=== PATIENT | female | born 1945 ===

== ENCOUNTER 2018-11-18 06:00 | Day surgery (SDC) | payer OTHER ==
[~2018-11-18 06:00] MED LIST: ASA81 MG PO; CLONAZEPAM0.5 MG PO; COZAAR100 MG PO; SYNTHROID75 MCG PO; TOPROL XL50 M1 PO
[2018-11-18] MEDS ORDERED: PERCOCET 5-3251 EACH PO (09:59)
== END 2018-11-18 12:35 | disposition home or self-care (01) ==
LOC: CIR.AMB 06:00
DX: D35.1 Benign neoplasm of parathyroid gland (principal)